=== PATIENT | female | born 1995 | race Caucasian/White ===

== ENCOUNTER 2016-09-13 04:24 | Emergency (ER) | payer BC ==
[~2016-09-13] VITALS: Ht 167.6 cm; Wt 65.0 kg
[~2016-09-13 04:24] MED LIST: BCPILLS PO; BUPRTAB51 PO; IBUP-1050 PO
[2016-09-13 04:29] VITALS: TEMP 36.7; Ht 167.6 cm; Wt 65.0 kg
[2016-09-13] MEDS ORDERED: SODIUM CHLORIDE 0.9% 1000ML 1,000 ML IV STA (04:49)
[2016-09-13] MEDS ORDERED: KETOROLAC TROMETHAMINE 30 MG/ML VIAL IV STA (04:49)
[2016-09-13] MEDS ORDERED: ONDANSETRON INJ 2 MG/ML 2 ML VIAL IV STA (04:49)
--- NOTE | 2016-09-13 04:53 | EMERGENCY ROOM VISIT NOTE ---
History Report prepared by Margotibjaycee: Chito Montero Under the Supervision of: Dr. Solo Champagne D.O. 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 The pain is rated 8/10 in severity and radiates towards her abdomen. The pain has improved compared to onset. She denies any fevers, nausea, vomiting, or urinary symptoms. The patient has never had pain like his before. She has never been diagnosed with kidney stones or pyelonephritis. She denies any recent strenuous activity or injury. She does not have any family history of kidney stones. 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 A total of ten systems were reviewed and were otherwise negative. Past Medical & Surgical Medical Problems: (1) Alcohol use with intoxication (2) Pelvic pain Family History FH: gallstones Social History Smoking Status: Never Smoker Alcohol Use: occasionally Drug Use: none Occupation Status: [employer] student Current/Historical Medications Scheduled Control Pills ( Control Pills), 1 TAB PO DAILY Allergies Coded Allergies: No Known Allergies (Unverified , 09/13/16) Physical Exam Vital Signs Date Time Temp Pulse Resp B/P Pulse Ox O2 Delivery O2 Flow Rate FiO2 09/13/16 05:27 88 09/13/16 05:17 88 16 136/77 96 Room Air 09/13/16 04:29 36.7 97 18 99/72 98 Room Air Physical Exam GENERAL: Awake, alert, well-appearing, in no distress HENT: Normocephalic, atraumatic. Oropharynx unremarkable. EYES: Normal conjunctiva. Sclera non-icteric. NECK: Supple. No nuchal rigidity. FROM. No JVD. RESPIRATORY: Clear to auscultation. CARDIAC: Regular rate, normal rhythm. Extremities warm and well perfused. Pulses equal. ABDOMEN: Soft, non-distended. No tenderness to palpation. No rebound or guarding. No masses. RECTAL: Deferred. MUSCULOSKELETAL: Right costovertebral angle tenderness with spasm. Chest examination reveals no tenderness. The back is symmetrical on inspection without obvious abnormality. No joint edema. LOWER EXTREMITIES: Calves are equal size bilaterally and non-tender. No edema. No discoloration. NEURO: Normal sensorium. No sensory or motor deficits noted. SKIN: No rash or jaundice noted. Medical Decision & Procedures ER Provider Diagnostic Interpretation: CT: Radiology results as stated below per my review and radiologist interpretation CT ABDOMEN & PELVIS: No evidence of hydronephrosis or ureteral stone. Mildly thickened under distended bladder. Normal caliber appendix. Stool-filled right colon. Fecal-like material in the distal small bowel suggestive of stasis. No evidence of bowel obstruction. Valeria Gramajo MD. Laboratory Results 09/13/16 05:30 Red Blood Count 4.20, Mean Corpuscular Volume 91.2, Mean Corpuscular Hemoglobin 31.9, Mean Corpuscular Hemoglobin Concent 35.0, Mean Platelet Volume 9.1, Neutrophils (%) (Auto) 46.9, Lymphocytes (%) (Auto) 40.6, Monocytes (%) (Auto) 9.9, Eosinophils (%) (Auto) 2.0, Basophils (%) (Auto) 0.4, Neutrophils # (Auto) 3.81, Lymphocytes # (Auto) 3.29, Monocytes # (Auto) 0.80, Eosinophils # (Auto) 0.16, Basophils # (Auto) 0.03 09/13/16 05:30 Test 09/13/16 04:41 09/13/16 05:30 White Blood Count 8.11 K/uL (4.8-10.8) Red Blood Count 4.20 M/uL (4.2-5.4) Hemoglobin 13.4 g/dL (12.0-16.0) Hematocrit 38.3 % (37-47) Mean Corpuscular Volume 91.2 fL (80-100) Mean Corpuscular Hemoglobin 31.9 pg (25-34) Mean Corpuscular Hemoglobin Concent 35.0 g/dl (32-36) Platelet Count 328 K/uL (130-400) Mean Platelet Volume 9.1 fL (7.4-10.4) Neutrophils (%) (Auto) 46.9 % Lymphocytes (%) (Auto) 40.6 % Monocytes (%) (Auto) 9.9 % Eosinophils (%) (Auto) 2.0 % Basophils (%) (Auto) 0.4 % Neutrophils # (Auto) 3.81 K/uL (1.4-6.5) Lymphocytes # (Auto) 3.29 K/uL (1.2-3.4) Monocytes # (Auto) 0.80 K/uL (0.11-0.59) Eosinophils # (Auto) 0.16 K/uL (0-0.5) Basophils # (Auto) 0.03 K/uL (0-0.2) RDW Standard Deviation 39.8 fL (36.4-46.3) RDW Coefficient of Variation 11.9 % (11.5-14.5) Immature Granulocyte % (Auto) 0.2 % Immature Granulocyte # (Auto) 0.02 K/uL (0.00-0.02) Anion Gap 5.0 mmol/L (3-11) Est Creatinine Clear Calc Drug Dose 129.0 ml/min Estimated GFR () 146.8 Estimated GFR (Non- 126.7 BUN/Creatinine Ratio 17.5 (10-20) Calcium Level 8.8 mg/dl (8.5-10.1) Laboratory results reviewed by me Medications Administered Medications (Trade) Dose Ordered Sig/Missael Route Start Time Stop Time Status Last Admin Dose Admin Sodium Chloride (Nss 1000ml) 1,000 ml @ 999 mls/hr Q1H1M STAT IV 09/13/16 04:49 09/13/16 05:49 DC 09/13/16 05:39 999 MLS/HR Ondansetron HCl (Zofran Inj) 4 mg NOW STAT IV 09/13/16 04:49 09/13/16 04:51 DC 09/13/16 05:39 4 MG Ketorolac Tromethamine (Toradol Inj) 30 mg NOW STAT IV 09/13/16 04:49 09/13/16 04:51 DC 09/13/16 05:39 30 MG ED Course 0448: The patient was evaluated in room B2. A complete history and physical exam was performed. 0449: Toradol 30 mg IV, Zofran 4 mg IV, NSS 1000 ml @ 999 mls/hr. Medical Decision Differential diagnosis includes kidney stone, pyelonephritis, renal colic, UTI, musculoskeletal back pain. Repeat examination patient's resting in no distress. I have evaluated the CAT scan and appreciated 3. Patient feels much improved on repeat examination. Patient's white blood cell count is normal metabolic panels normal urinalysis patient was not . Patient was told that there was increased stool and to get MiraLAX for constipation Impression Primary Impression: Right flank pain Additional Impression: Constipation Scribe Attestation The scribe's documentation has been prepared under my direction and personally reviewed by me in its entirety. I confirm that the note above accurately reflects all work, treatment, procedures, and medical decision making performed by me. Departure Information Dispostion Home / Self-Care Referrals [facility] (PCP) Patient Instructions Abdominal Pain, ED Constipation, [facility] Problem Qualifiers Additional Impression: Constipation Constipation type: unspecified constipation type Qualified Codes: K59.00 - Constipation, unspecified
[2016-09-13 05:51] LABS: BASO % 0.4 %; BASO ABS # 0.03 K/uL (0-0.2); COMPLETE YES; HEMATOCRIT 38.3 % (37-47); IG% 0.2 %; LYMPH % 40.6 %; LYMPH ABS # 3.29 K/uL (1.2-3.4); MEAN CELL VOLUME 91.2 fL (80-100); MEAN CORPUSCULAR HEMOGLOBIN 31.9 pg (25-34); MEAN PLATELET VOLUME 9.1 fL (7.4-10.4); MONO % 9.9 %; NEUT % 46.9 %; PLATELET COUNT 328 K/uL (130-400); WHITE BLOOD COUNT 8.11 K/uL (4.8-10.8)
[2016-09-13 06:07] LABS: BUN/CREATININE RATIO 17.5 (10-20); CALCIUM 8.8 mg/dl (8.5-10.1); CREATININE 0.64 mg/dl (0.60-1.20); POTASSIUM 3.8 mmol/L (3.5-5.1)
[2016-09-13 06:32] VITALS: BP 120/64; PULSE 71; O2SAT 98
--- NOTE | 2016-09-13 07:45 | DIAGNOSTIC IMAGING REPORT ---
CT SCAN OF THE ABDOMEN AND PELVIS WITHOUT IV CONTRAST CLINICAL HISTORY: Right flank pain. COMPARISON STUDY: Pelvic ultrasound dated 03/21/2016. TECHNIQUE: CT scan of the abdomen and pelvis is performed from the lung bases to the proximal femora. Images are reviewed in the axial, sagittal, and coronal planes. IV contrast was not administered for this examination as per the referring clinician. Automated dose control exposure was utilized. CT DOSE: 529.69 mGy.cm FINDINGS: Lung bases: The heart is normal in size and without pericardial effusion. The lung bases are clear. Liver: The unenhanced liver is normal in size, contour, and attenuation. There is no intrahepatic biliary ductal dilatation. Gallbladder: Unremarkable. Spleen: Normal in size and attenuation. Pancreas: Unremarkable. Adrenal glands: Unremarkable. Kidneys: The unenhanced kidneys are normal in size and without hydronephrosis. There are no renal calculi identified. There is no evidence of contour deforming renal mass lesion. Abdominal vasculature: The abdominal aorta is normal in course and caliber. Bowel: The small bowel and colon are normal in course and caliber. There is moderate colonic fecal retention. The appendix is well-visualized and normal. Peritoneum: There is no intraperitoneal free air or abdominal ascites. Lymphadenopathy: None. Pelvic viscera: The bladder, uterus, and adnexa are normal as visualized. Small ovarian follicles are incidentally noted. Skeletal structures: No lytic or blastic lesions are seen. A posterior disc bulge is noted at L5-S1. IMPRESSION: 1. There are no acute infectious or inflammatory findings in the abdomen or pelvis. 2. Moderate constipation. Electronically signed by: Tray Seth M.D. 09/13/2016 7:43 AM Dictated Date/Time: 09/13/2016 7:40 AM
== END 2016-09-13 06:33 | disposition home or self-care (01) ==
LOC: C.EDB 04:25
DX: R10.9 Unspecified abdominal pain (principal); K59.00 Constipation, unspecified; Z83.79 Family history of other diseases of the digestive system